=== PATIENT | male | born 1960 | race Caucasian/White ===

== ENCOUNTER 2016-10-11 12:03 | Emergency (ER) | payer OTHER ==
[2016-10-11] MEDS ORDERED: Chlorthalidone TAB* 50 MG PO ONE (13:29)
--- NOTE | 2016-10-11 13:31 | ED ---
Awa De Paz Matthew, scribed for Jean Angulo MD on 10/11/16 at 1244 . Skin Complaint - HPI Summary HPI Summary: A 56 y/o male presents to the ED with jones to his abdomen and right arm after falling on a steam pipe at work. The pain is described as soreness and rated 5/ 10 in severity. The patient states that he had a mechanical fall on a "steam pipe", which caused jones to his abdomen and right arm. The patient was bandaged [employer] at work. - History of Current Complaint Chief Complaint: EDBurnSmokeInh Time Seen by Provider: 10/11/16 12:21 Stated Complaint: ABD BURN/FELL ON STEAM LINE Hx Obtained From: Patient Onset/Duration: Started Hours Ago, Traumatic, Still Present Skin Exposure Onset/Duration: Hours Ago Timing: Constant Onset Severity: Moderate Current Severity: Moderate Pain Intensity: 5 Pain Scale Used: 0-10 Numeric Skin Location: Arm - right, Abdomen Alleviating Symptom(s): Nothing Associated Signs & Symptoms: Negative - Allergy/Home Medications Allergies/Adverse Reactions: Allergies Allergy/AdvReac Type Severity Reaction Status Date / Time No Known Allergies Allergy Verified 04/15/16 06:17 PMH/Surg Hx/FS Hx/Imm Hx Endocrine/Hematology History: Reports: Hx Thyroid Disease Cardiovascular History: Reports: Hx Hypertension Denies: Hx Pacemaker/ICD Sensory History: Reports: Hx Contacts or Glasses Denies: Hx Hearing Aid Opthamlomology History: Reports: Hx Contacts or Glasses - Surgical History Surgery Procedure, Year, and Place: THYROIDECTOMY Hx Anesthesia Reactions: No Infectious Disease History: No Infectious Disease History: Denies: Traveled Outside the [place] in Last 30 Days - Family History Family History: No FHx of malignant hyperthermia. No FHx of anesthesia reaction - Social History Alcohol Use: None Hx Substance Use: No Substance Use Type: Reports: None Hx Tobacco Use: Yes Smoking Status (MU): Heavy Every Day Tobacco Smoker Amount Used/How Often: 1 PPD X 30 YEARS Have You Smoked in the Last Year: Yes Review of Systems Constitutional: Negative Eyes: Negative ENT: Negative Cardiovascular: Negative Respiratory: Negative Gastrointestinal: Negative Genitourinary: Negative Musculoskeletal: Negative Skin: Other - Burn Neurological: Negative Psychological: Normal All Other Systems Reviewed And Are Negative: Yes Physical Exam - Summary Physical Exam Summary: Vital signs: reviewed General: Patient is comfortable lying in stretcher with no signs of distress HEENT: within normal limits Lungs: CTA B/L CVS: S1 & S2 present. No murmurs appreciated. Abdomen: Soft, NT, Positive BS. Extremities: FROM x4, no edema, no cyanosis, positive pulses Neuro: Alert and oriented x 3. No acute neurological deficits. Skin: Warm and dry. Right forearm with a partial thickness (2nd degree burn) of 1.5 % on the anterior aspect of the arm. Also there is a partial thickness (2nd degree burn) of 4 % in the right side of the abdomen. Triage Information Reviewed: Yes Vital Signs On Initial Exam: Initial Vitals Temp Pulse Resp BP Pulse Ox 98.4 F 116 18 194/101 100 10/11/16 12:04 10/11/16 12:04 10/11/16 12:04 10/11/16 12:04 10/11/16 12:04 Vital Signs Reviewed: Yes Diagnostics - Vital Signs Vital Signs Temp Pulse Resp BP Pulse Ox 10/11/16 12:04 98.4 F 116 18 194/101 100 - Laboratory Lab Statement: Any lab studies that have been ordered have been reviewed, and results considered in the medical decision making process. Course/Dx - Course Assessment/Plan: A 56 y/o male presents to the ED with cc of accidental burn when he fall on top of a steam pipe while at work at the [employer]. The patient has second degree jones on his abdomen approximately 4% and the right arm of approx. 1.5%. The burn again is a partial thickness before it was cleaned and triple Abx was applied. Patient was found to be hypertensive and he states he took his medication this morning. He was given Chlorthalidone one dose and he will be continue taking his medications at home. Patients blood pressure was noted to be elevated. The patient was instructed to follow up with primary care provider for reassessment of increased blood pressure. The patient will follow- up with his PCP in 2-3 days. The patient will be given a work noted to return on Friday. He was advised to keep the wound clean and return immediately to the ED if there is pain, discharge, or erythema. The patient is hemodynamically stable and AxOx3. - Differential Diagnoses - Skin Complaint Differential Diagnoses: Cellulitis, Drug Rash, Eczema - Diagnoses Provider Diagnoses: Second degree burn of abdominal wall, Second degree burn injury, Hypertension, uncontrolled Discharge - Discharge Plan Condition: Stable Disposition: HOME Patient Education Materials: Second Degree Burn (ED) Forms: *Work Release Referrals: Keysha Munguia MD [Primary Care Provider] - 2 Days Additional Instructions: Please follow-up with your primary care physician in two days. Return to the ED if your pain worsens or you developed discharge or redness at the burn sight. Images - Images Full Body (No Head): 1 - 2nd degree / partial thickness 2 - 2nd degree / partial thickness. The documentation as recorded by the Awa soliz Matthew accurately reflects the service I personally performed and the decisions made by me, Jean Angulo MD.
[2016-10-11 15:25] VITALS: BP 147/103
== END 2016-10-11 15:24 | disposition home or self-care (01) ==
LOC: ED 12:03
DX: T21.22XA Burn of second degree of abdominal wall, initial encounter (principal); I10 Essential (primary) hypertension; X13.1XXA Other contact with steam and other hot vapors, initial encounter; Y93.9 Activity, unspecified; Y92.9 Unspecified place or not applicable
CPT/HCPCS: 99282; A9270-GY